=== PATIENT | female | born 1945 | race Asian ===

== ENCOUNTER 2024-10-01 11:32 | Emergency (ER) | payer MEDICARE, MEDICAID, SELFPAY ==
[2024-10-01 11:33] VITALS: BMI 23.0
[2024-10-01 11:42] VITALS: BP 134/77; PULSE 78; RESP 16; TEMP 36.8; O2SAT 98
--- NOTE | 2024-10-01 11:53 | XR_ITS ---
Examination: Ribs, left, with PA chest, 4 views Technique: Chest PA, RIBS AP, RPO, LPO, 4 views Exam date and time: October 01, 2024 1207 hours INDICATIONS: Onset left-sided rib pain today. FINDINGS: Normal heart size. No pneumothorax. Prominent osteopenia No acute left rib fractures IMPRESSION: No pneumothorax No acute left rib fractures
--- NOTE | 2024-10-01 11:53 | EKG_ITS ---
[facility] Test Date: 2024-10-01 Pat Name: SHANNA JEAN Department: Room: - Gender: Female Quantitative Associate: : 1945 Requested By: Emmett Barry (STACY) Order Number: [id number] Reading MD: Emmett Barry (DEPLOYMENT ENGINEER) Measurements Intervals Umbarger Rate: 73 P: 63 TX: 167 QRS: -54 QRSD: 89 T: 61 QT: 375 QTc: 414 Interpretive Statements SINUS RHYTHM LEFT ANTERIOR FASCICULAR BLOCK [QRS AXIS <= -45, QR IN I, RS IN II] Compared to ECG 03/21/2022 15:09:21 No significant changes /store/S0/[id number]/[id number].pdf
--- NOTE | 2024-10-01 11:54 | PD.EDRME ---
Rapid Medical Screening Exam [facility] Arrival date/time: 10/01/24 11:32 79 year-old female presents to the Emergency Department for complaints of left-sided chest pain and left side abdominal pain Chief Complaint: Abdominal Pain Vital signs: Vital Signs Temperature 98.3 F 10/01/24 11:42 Pulse Rate 78 10/01/24 11:42 Respiratory Rate 16 10/01/24 11:42 Blood Pressure 134/77 H 10/01/24 11:42 Pulse Oximetry (%) 98 10/01/24 11:42 Oxygen Delivery Method Room Air 10/01/24 11:42
[2024-10-01 12:21] LABS: Basophils % (Auto) 0 % (0-2.5); Eosinophils # (Auto) 0.2 Thou/mm3 (0.0-0.5); Eosinophils % (Auto) 3 % (0-10); Hematocrit 29.1 % (36.0-46.0); Hemoglobin 9.4 g/dL (12.0-16.0); Immature Granulocytes % (Auto) 0 % (0-0); Immature Granulocytes Auto 0.01 Thou/mm3 (0.00-0.00); Lymphocytes # (Auto) 2.3 Thou/mm3 (1.0-4.8); Lymphocytes % (Auto) 32 % (10-50); Mean Corpuscular HGB Conc 32.3 g/dl (31.0-37.0); Mean Corpuscular Hemoglobin 23.4 pg (25.0-35.0); Mean Corpuscular Volume 73 fL (80-100); Monocytes # (Auto) 0.6 Thou/mm3 (0.0-0.8); Monocytes % (Auto) 9 % (0-12); Neutrophils # (Auto) 3.9 Thou/mm3 (1.8-7.7); Neutrophils % (Auto) 56 % (37-80); Nucleated Red Blood Cell % 0 /100 WBC (0); Platelet Count 177 Thou/mm3 (140-440); RDW Standard Deviation 34.3 fL (36.4-46.3); Red Blood Count 4.01 Miln/mm3 (4.00-5.20)
[2024-10-01 12:37] LABS: Alanine Aminotransferase 13 U/L (10-49); Albumin, Serum 4.5 gm/dL (3.4-4.8); Albumin/Globulin Ratio 1.5 (1.2-2.2); Alkaline Phosphatase 95 U/L (46-116); Anion Gap 10 (7-16); Aspartate Amino Transferase 21 U/L (0-34); BUN/Creatinine Ratio 17 Ratio (12-20); Bilirubin,Total 0.4 mg/dL (0.3-1.2); Blood Urea Nitrogen 26 mg/dL (9-23); Calcium 8.8 mg/dL (8.3-10.6); Calcium (Corrected) 8.8 mg/dL (8.5-10.1); Carbon Dioxide 23.2 mMol/L (20.0-31.0); Chloride 107 mMol/L (98-107); Creatinine (Component) 1.5 mg/dL (0.6-1.3); Estimated Creatinine Clearance 24.7 mL/min (>60); Globulin 3.1 gm/dL (2.3-3.5); Glucose 139 mg/dL (74-106); Lipase 56 U/L (12-53); Osmolality,Calculated 286 (275-295); Sodium 140 mMol/L (136-145); Total Protein 7.6 gm/dL (5.7-8.2); Troponin I < 0.002 ng/mL (0.0-0.045); eGFR 35 See Note
[2024-10-01 12:39] LABS: Potassium 6.3 mMol/L (3.4-5.1)
[2024-10-01 14:00] VITALS: BP 161/71; PULSE 66; RESP 16; TEMP 36.8; O2SAT 100
--- NOTE | 2024-10-01 14:10 | EDNOTE_ITS ---
<Statement entered by Celina Emerson MD - 10/12/24 01:02> I, Celina Emerson MD, have reviewed the history, exam, and assessment of the patient. I have evaluated the patient independently and agree with the plan of care documented by [ ]. All diagnostic studies were reviewed and discussed. I confirm the diagnosis as documented by the Resident. I was present during the Medical Decision Making for this patient. The patient's plan of care was created between myself and the Resident and consistent with our discussion of the patient's case. ED Abdominal Pain RME/HPI General Chief Complaint: Abdominal Pain Stated complaint: LEFT UPPER ABD PAIN X3DAYS Arrival date/time: 10/01/24 11:32 RME / HPI RME / HPI narrative: 10/01/24 The patient is an 79-year-old female with significant past medical history of diabetes mellitus type 2, hypertension, hyperlipidemia, CKD stage IIIb and chronic GERD presented to ED with chief complaint of left upper abdomen and lower chest pain that started after she lifted up heavy bucket. The patient denied any lightheadedness, headache, SOB, any changes in bowel or bladder habit, leg swelling, fever or chills, nausea or vomiting. Related Data Home Medications ?Medication ?Instructions ?Recorded ?Confirmed ferrous sulfate 325 mg (65 mg 325 mg PO QDAY 09/22/23 09/22/23 iron) tablet (FeroSul) simvastatin 40 mg tablet 40 mg PO QPM 09/22/23 Previous Rx's ?Medication ?Instructions ?Recorded insulin glargine 100 unit/mL (3 27 unit (0.27 mL) subc ut QAM #15 mL 09/23/23 mL) subcutaneous pen pen needle, diabetic 32 gauge x #100 ea 09/23/2305/08 (Comfort EZ Pen Cade) famotidine 20 mg tablet 20 mg PO QDAY #30 tabs 10/01 Allergies Allergy/AdvReac Type Severity Reaction Status Date / Time No Known Allergies Allergy Verified 10/01/24 11:35 Review of Systems Review of Systems Systems Reviewed: All systems reviewed, normal except as documented (Above) Past Medical History Past Medical History NEUROLOGIC: Negative Seizures CARDIAC: Positive Hypercholesterolemia and Hypertension; Negative Congestive Heart Failure ENDOCRINE: Positive Diabetes Mellitus Type 2; Negative Diabetes Mellitus Type 1 HEMATOLOGIC: Negative Sickle Cell Disease Surgical History OTHER SURGICAL HX: via infraumbilical vertical laparotomy Social History SMOKING STATUS: Never smoker ED Exam Narrative Physical exam: General: No acute distress, Alert and Oriented x 3 HEENT: Moist mucous membranes, oropharynx clear Neck: Supple, No masses, No JVD CVS: S1S2 Regular rate and rhythm, No murmurs, rubs or gallops Lungs: Clear to auscultation with no accessory use, no wheeze no rhonchi, tenderness over left lower chest Abd: Soft, tenderness over upper left lateral abdomen/ND, +BS, no organomegaly Ext: No edema, warm and well perfused Skin: No rash Psych: Appropriate mood and affect Course Quality Measures none Orders Category Date Time Status EKG (ED ONLY) *Do not use* NOW Care 10/01/24 11:53 Completed EKG (ED Only) Stat Exams 10/01/24 11:53 Draft XR ribs LT min 3V w CXR1V Stat Exams 10/01/24 11:53 Completed BMP [Basic Metabolic Panel] Urgent Lab 10/01/24 16:14 Completed CBC Stat Lab 10/01/24 12:08 Completed Comprehensive Metabolic Panel Stat Lab 10/01/24 12:08 Completed Lipase Stat Lab 10/01/24 12:08 Completed Magnesium Stat Lab 10/01/24 12:08 Completed Troponin I Stat Lab 10/01/24 12:08 Completed ALBUTEROL RT 0.5ml [Proventil Rt 0.5ml] Med 10/01/24 14:15 Discontinued 10 mg INH X1 ONE ALBUTEROL RT 5 ml [Proventil Rt 5 ml] Med 10/01/24 14:11 Discontinued 10 mg INH X1 ONE Acetaminophen Tab [Tylenol Tab] Med 10/01/24 14:14 Discontinued 650 mg PO X1 ONE Dextrose 50% Syr [D50w Syringe Abboject] Med 10/01/24 14:11 Discontinued 50 ml IV X1 ONE Insulin Regular Med 10/01/24 14:11 Discontinued 5 unit IV X1 ONE Sod Polystyrene Sulfon Susp [Kayexalate Susp] Med 10/01/24 14:11 Discontinued 30 gm PO X1 ONE Sodium Chloride 0.9% 1000 ml [Ns] 1,000 ml Med 10/01/24 14:35 Discontinued IV 999 mls/hr Sodium Chloride Rt Sheeba 0.9% [NS Rt Sheeba 0.9%] Med 10/01/24 14:16 Active 3 ml INH PRN PRN Vital Signs Vital signs: Vital Signs Temperature 98.3 F 10/01/24 11:42 Pulse Rate 78 10/01/24 11:42 Respiratory Rate 16 10/01/24 11:42 Blood Pressure 134/77 H 10/01/24 11:42 Pulse Oximetry (%) 98 10/01/24 11:42 Oxygen Delivery Method Room Air 10/01/24 11:42 Abdominal Pain MDM MDM Narrative MDM Narrative:: The patient is an 79-year-old female with significant past medical history of diabetes mellitus type 2, hypertension, hyperlipidemia, CKD stage IIIb and chronic GERD presented to ED with chief complaint of left upper abdomen and lower chest pain that started after she lifted up heavy bucket. The patient denied any lightheadedness, headache, SOB, any changes in bowel or bladder habit, leg swelling, fever or chills, nausea or vomiting. Initial vitals were blood pressure 134/77, pulse 78, RR 16, temperature 98.3, saturating 98% on room air. Her hemoglobin was 9.4, MCV 73, potassium 6.3 with baseline of 4.5-4.9, BUN 26, creatinine 1.5, GFR 35, blood sugar 139, troponin less than 0.002, lipase 56, EKG revealed sinus rhythm, ribs x-ray revealed no pneumothorax, no acute left rib fractures. The patient was given IV normal saline bolus 1 L, Kayexalate 30 g p.o. x 1, insulin regular 5 units IV x 1, Insulin lispro 5 Units SC x1, dextrose 50 mL 50% IV x 1, albuterol inhalation 10 Mg INH x 1 and Tylenol 650 Mg p.o. x 1. The patient was plan to discharged home after she was stable. The patient's management plan was discussed with my attending physician MD David Pearson MD, PGY2 Patient data External records reviewed:: [facility] previous records Clinical information provided by:: patient and family Social determinants that could affect healthcare access:: none Patient has the following chronic illnesses:: See above How is presenting disease/condition affected by chronic disease/condition?: exacerbated by Evaluation data The following diagnostics were reviewed and interpreted by me:: lab results, radiology exam(s) and EKG tracing(s) Lab and/or radiology exams considered but not ordered:: None Interpretation Summary: See above Medications / Prescriptions Medications or Prescriptions considered but not ordered:: None Medication administrations:: Medication Administration History Sodium Chloride (Sodium Chloride Rt Sheeba 0.9% 3 Ml Nebu) 3 ml INH PRN PRN PRN Reason: FOR ALBUTEROL DILUTION Stop: 10/31/24 14:15 Last Admin: 10/01/24 14:51 Dose: 3 ml Documented By: YULIET Discontinued Medications Acetaminophen (Acetaminophen 325 Mg Tablet) 650 mg PO X1 ONE Stop: 10/01/24 14:15 Last Admin: 10/01/24 14:49 Dose: 650 mg Documented By: ER Albuterol (Albuterol Rt 25 Mg/5 Ml Nebu) 10 mg INH X1 ONE Stop: 10/01/24 14:12 Albuterol (Albuterol Rt 2.5 Mg/0.5 Ml Nebu) 10 mg INH X1 ONE Stop: 10/01/24 14:16 Last Admin: 10/01/24 14:50 Dose: 10 mg Documented By: YULIET Dextrose (Dextrose 50%-Water Inj 50 Ml Syringe) 50 ml IV X1 ONE Stop: 10/01/24 14:12 Last Admin: 10/01/24 14:52 Dose: 50 ml Documented By: ER Sodium Chloride (Ns) 1,000 mls @ 999 mls/hr IV .Q1H1M ONE Stop: 10/01/24 15:35 Last Infusion: 10/01/24 16:00 Dose: Infused Documented By: Admin: 10/01/24 14:58 Dose: 999 mls/hr Documented By: ER Insulin Human Regular (Insulin Hum Regular 1 Unit/0.01 Ml (Per Unit)) 5 unit IV X1 ONE Stop: 10/01/24 14:12 Last Admin: 10/01/24 14:55 Dose: 5 unit Documented By: ER Co-signed By: BERTRAM Sodium Polystyrene Sulfonate (Sod Polystyrene Sulfon Susp 15 Gm/60 Ml Btl) 30 gm PO X1 ONE Stop: 10/01/24 14:12 Last Admin: 10/01/24 14:49 Dose: 30 gm Documented By: ER See above Consultations Consultation(s) initiated? (list below): No Diagnosis Differential diagnosis abdominal pain: diverticulitis, pancreatitis and other (Musculoskeletal pain) Most likely diagnosis given after review of the tests above:: Musculoskeletal pain Hyperkalemia Admission Indicated Admission indicated?: not indicated Admission Request Was there a request for admission?: No Disposition Plan Disposition Plan: Discharge Discharge Attestation Discharge Attestation: The patient and all family members were given an opportunity to ask questions and understood the discharge instructions. Discharge instructions specifically effects, indications for sooner follow up or return to the emergency department, and the expected course of current diagnosis. Patient condition: Stable Discharge Plan Plan Patient Disposition: HOME (Self Care) Prescriptions/Referrals Prescriptions/Med Rec: New famotidine 20 mg tablet 20 mg PO QDAY Qty: 30 0RF Discontinued omeprazole 20 mg capsule,delayed release(DR/EC) 20 mg PO QPM Patient Comments: TAKE ONE CAPSULE BY MOUTH NIGHTLY HEARTBURN No Action simvastatin 40 mg tablet 40 mg PO QPM Patient Comments: TAKE ONE TABLET BY MOUTH AT BEDTIME FOR CHOLESTEROL ferrous sulfate [FeroSul] 325 mg (65 mg iron) tablet 325 mg PO QDAY Patient Comments: TAKE ONE TABLET BY MOUTH EVERY DAY VITAMIN WITH ORANGE JUICE insulin glargine 100 unit/mL (3 mL) insulin pen 27 unit subcut QAM Qty: 15 0RF (DME) pen needle, diabetic [Comfort EZ Pen Cade] 32 gauge x 1/4 needle See Rx Instructions .Route Qty: 100 0RF Rx Instructions: As directed Referrals: Nelly Puentes, SALES TRAINING MANAGER [Primary Care Provider] - In 1 week Problem List Clinical Impression: Acute hyperkalemia, Muscle spasm Patient/Caregiver Discharge Instructions Additional Instructions: mak garcia podbaldo pottera jimgtopaini kaluna tidtamkab [facility] athid [place] ka gabbi na tid archer than mo [facility] rang khong than lae mercedes francisco jean ka jim [facility] rang soa lab jitendra ladab potassium sung thandai [place]emton jayy Famotidine 20 Mg pachoavansoalab GERD lae GI upset phuakhao nash yudsaokankin omeprazole 20 Mg pachoavansoalab GERD subto kinya un archer baisang naenoahai kabkhunpai white phaaenk suksoen perfecto akankhong than [facility] talavera ru angie mackay You have been discharged by Dr. eWiss with following recommendations: Please follow-up with your PCP within 1 week of discharge Please follow-up with your kidney doctor, and request for renal panel for high potassium level You have been started on: -Famotidine 20 Mg daily for GERD and GI upset. We have discontinued omeprazole 20 Mg daily for GERD. Continue taking all other medicines as prescribed -Recommended to return back to emergency department if your symptoms persists or worsens Print Language: Marcus Stand Alone Forms: Dione Award Info., Patient Portal Info Letter
[2024-10-01] MEDS: ACETAMINOPHEN 325 MG TABLET 650 MG PO (14:49)
[2024-10-01] MEDS: SOD POLYSTYRENE SULFON SUSP 15 GM/60 ML BTL 30 GM PO (14:49)
[2024-10-01 14:50] VITALS: PULSE 67
[2024-10-01] MEDS: ALBUTEROL RT 2.5 MG/0.5 ML NEBU 10 MG INH (14:50)
[2024-10-01 14:51] VITALS: PULSE 76; RESP 18; O2SAT 100
[2024-10-01] MEDS: SODIUM CHLORIDE RT SOL 0.9% 3 ML NEBU INH (14:51)
[2024-10-01] MEDS: DEXTROSE 50%-WATER INJ 50 ML SYRINGE IV (14:52)
[2024-10-01] MEDS: INSULIN HUM REGULAR 1 UNIT/0.01 ML (PER UNIT) 5 UNIT IV (14:55)
[2024-10-01] MEDS: SODIUM CHLORIDE 0.9% 1000 ML 1,000 ML 999 ML IV (14:58)
[2024-10-01 15:27] LABS: Magnesium 1.5 mg/dL (1.6-2.6)
[2024-10-01 16:32] VITALS: BP 153/77; PULSE 98; RESP 16; TEMP 36.8; O2SAT 100
[2024-10-01 16:43] LABS: Anion Gap 15 (7-16); BUN/Creatinine Ratio 16 Ratio (12-20); Blood Urea Nitrogen 26 mg/dL (9-23); Calcium 8.8 mg/dL (8.3-10.6); Carbon Dioxide 24.4 mMol/L (20.0-31.0); Chloride 105 mMol/L (98-107); Creatinine (Component) 1.6 mg/dL (0.6-1.3); Estimated Creatinine Clearance 23.2 mL/min (>60); Glucose 276 mg/dL (74-106); Osmolality,Calculated 301 (275-295); Potassium 4.1 mMol/L (3.4-5.1); Sodium 144 mMol/L (136-145); eGFR 32 See Note
[2024-10-01 18:35] VITALS: BP 155/70; PULSE 85; RESP 17; TEMP 36.7; O2SAT 100
== END 2024-10-01 18:46 | disposition home or self-care (01) ==
PROVIDERS: Nurse Practitioner Primary Care; Student in an Organized Health Care Education/Training Program; Emergency Provider Emergency Medicine; PCP Nurse Practitioner Family
DX: E87.5 Hyperkalemia (principal); M62.838 Other muscle spasm; R07.81 Pleurodynia; I44.4 Left anterior fascicular block; I12.9 Hypertensive chronic kidney disease with stage 1 through stage 4 chronic kidney disease, or unspecified chronic kidney disease; N18.32 Chronic kidney disease, stage 3b; E11.22 Type 2 diabetes mellitus with diabetic chronic kidney disease; Z79.4 Long term (current) use of insulin
CPT/HCPCS: 36415; 71101; 80048; 80053; 83690; 83735; 84484; 85025; 93005; 94640; 96360; 99284; J1815; J7030; A9270; J7609